=== PATIENT | male | born 1990 | race Caucasian/White ===

== ENCOUNTER 2020-09-04 04:02 | Emergency (ER) | payer MEDICAID ==
[~2020-09-04] VITALS: Ht 185.4 cm; Wt 81.8 kg
--- NOTE | 2020-09-04 04:20 | NUR ---
pt came into ed this am due to lower leg swelling bilaterally, pt states swelling is intermittent but recently more frequent. Denies pain in feet when swelling is present. No swelling noted at this time. Also c/o inner thigh pain [id number], started in the left and states that now both sides have the pain. states "its sporadic and is just a sharp, sharp pain". denies traumatic injuries to the legs or feet, reports he pulled groin muscle approx 7 months previously pt sitting up on gurney, nad, bed in lowest, rails engaged, call light on lap, nad, appear comfortable, denies additional questions or needs at this time. provided warm blankets for comfort, wctm. placed on spo2/bp monitoring
[2020-09-04 05:13] LABS: BASOPHILS % (AUTO) 1 % (0-1); EOSINOPHILS % (AUTO) 4 % (1-7); LYMPHOCYTES % (AUTO) 37 % (22-44); MEAN CORPUSCULAR HEMOGLOBIN 30.8 pg (27.5-34.5); MEAN CORPUSCULAR HGB CONC 34.1 g/dL (33.2-36.2); MEAN PLATELET VOLUME 8.6 fL (7.4-10.4); MONOCYTES % (AUTO) 12 % (2-9); NEUTROPHILS % (AUTO) 46 % (42-75); PLATELET COUNT 227 x10^3/uL (130-400); RED BLOOD COUNT 4.62 x10^6/uL (4.38-5.82); RED CELL DISTRIBUTION WIDTH 13.3 % (9.4-14.8)
[2020-09-04 05:22] LABS: MD NO
[2020-09-04 05:26] LABS: ALANINE AMINOTRANSFERASE 20 U/L (12-78); ANION GAP 6 mmol/L (5-15); CALCIUM 8.3 mg/dL (8.5-10.1); CHLORIDE 109 mmol/L (98-107); CREATININE 1.07 mg/dL (0.7-1.3)
[2020-09-04 05:28] LABS: ALKALINE PHOSPHATASE 44 U/L (45-117); BILIRUBIN,TOTAL 0.4 mg/dL (0.2-1.0); TOTAL PROTEIN 6.9 g/dL (6.4-8.2)
--- NOTE | 2020-09-04 05:46 | NUR ---
pt resting on gurney, nad, no change in condition, appears comfortable, wctm.
[2020-09-04 06:32] VITALS: BP 136/74
--- NOTE | 2020-09-04 06:32 | NUR ---
Patient given discharge instructions and they have confirmed that they understand the instructions. Patient ambulatory with steady gait. nad, denies additional questions or needs, no personal belongings left in room after dc.
== END 2020-09-04 06:34 | disposition home or self-care (01) ==
LOC: ED 06:00
DX: R60.0 Localized edema (principal); M79.605 Pain in left leg; M79.604 Pain in right leg
CPT/HCPCS: 36415; 80053; 85025; 93970; 99284